=== PATIENT | female | born 1995 | race Caucasian/White ===

== ENCOUNTER → 2020-12-27 | Outpatient (CLI) | payer MEDICAID ==
[~2020-12-27] MED LIST: ACYC200C31 PO; CHOL400D7 PO; IBUP-2030 PO; PREN1COM12 PO; PREN1TAB23 PO
== END | disposition home or self-care (01) ==
LOC: LAB 16:31
DX: Z20.822 Contact with and (suspected) exposure to COVID-19 (principal)
CPT/HCPCS: C9803; U0003; U0005

== ENCOUNTER 2020-12-29 05:17 | Inpatient (IN) | payer MEDICAID ==
[~2020-12-29] VITALS: Ht 162.6 cm; Wt 81.6 kg
[2020-12-29] MEDS ORDERED: PREN1COM12 PO (05:40)
[2020-12-29] MEDS ORDERED: CARBOPROST TROMETHAMINE 250 MCG/ML AMPUL IM PRN (05:45)
[2020-12-29] MEDS ORDERED: METHYLERGONOVINE MALEATE 0.2 MG/ML IM PRN (05:45)
[2020-12-29] MEDS ORDERED: NALOXONE HCL 0.4 MG/ML 1ML VIAL IM PRN (05:45)
[2020-12-29] MEDS: LACTATED RINGERS 1,000 ML IV SCH ×3 (06:20→07:33)
[2020-12-29] MEDS ORDERED: CITRIC ACID/SODIUM CITRATE SOLN 30ML UDC PO ONE (06:45)
[2020-12-29 06:58] LABS: CLARITY URINE CLEAR (CLEAR); COLOR URINE YELLOW (YELLOW); KETONES URINE NEGATIVE (NEGATIVE); LEUKOCYTE ESTERASE URINE TRACE (NEGATIVE); NITRITE URINE NEGATIVE (NEGATIVE); OCCULT BLOOD URINE NEGATIVE (NEGATIVE); PH URINE 7.5 (4.5-8.0); PROTEIN URINE NEGATIVE (NEGATIVE); SPECIFIC GRAVITY URINE 1.012 (1.005-1.030); UROBILINOGEN URINE 0.2 E.U./dL (0.2-1.0)
[2020-12-29 07:12] LABS: BASOPHILS % 0.3 % (0.0-2.0); EOSINOPHILS % 1.9 % (0.0-5.0); HEMATOCRIT. 38.9 % (36.0-48.0); HEMOGLOBIN. 13.5 g/dL (12.0-16.0); LYMPHOCYTES % 25.6 % (20.0-50.0); MEAN CORPUSCULAR HEMOGLOBIN 31.2 pg (28.0-32.0); MEAN CORPUSCULAR VOLUME 90.2 fL (81.0-99.0); MONOCYTES % 7.9 % (2.0-8.0); NEUTROPHILS % 64.3 % (40.0-76.0); PLATELET 182 x1000/uL (130-400); RED BLOOD CELL COUNT 4.31 mill/uL (4.2-5.4); RED CELL DISTRIBUTION WIDTH 13.8 % (11.6-14.6)
[2020-12-29] MEDS ORDERED: PREN1TAB23 PO (07:16)
[2020-12-29] MEDS ORDERED: ACYC200C31 PO (07:16)
[2020-12-29] MEDS ORDERED: CHOL400D7 PO (07:16)
[2020-12-29 07:38] LABS: INR 0.9; PARTIAL THROMBOPLASTIN TIME 29.1 sec (23.4-31.0); PROTHROMBIN TIME 9.8 sec (9.6-11.0)
[2020-12-29 07:54] LABS: HEPATITIS B SURFACE ANTIGEN NEGATIVE
[2020-12-29 08:05] LABS: *BARBITURATES SCREEN URINE NEGATIVE (NEGATIVE); *BENZODIAZEPINES SCREEN URINE NEGATIVE (NEGATIVE); *COCAINE SCREEN URINE NEGATIVE (NEGATIVE); METHADONE URINE SCREEN NEGATIVE (NEGATIVE); OPIATES URINE SCREEN NEGATIVE (NEGATIVE); PHENCYCLIDINE URINE SCREEN NEGATIVE (NEGATIVE)
[2020-12-29 08:06] LABS: *AMPHETAMINES SCREEN URINE NEGATIVE (NEGATIVE); CANNABINOID URINE SCREEN NEGATIVE (NEGATIVE)
[2020-12-29] MEDS ORDERED: NALOXONE HCL 0.4 MG/ML 1ML VIAL IV PRN (11:45)
[2020-12-29] MEDS ORDERED: MORPHINE SULFATE 10 MG/ML CPJ IV PRN (11:45)
[2020-12-29] MEDS ORDERED: FENTANYL CITRATE/PF 50MCG/ML 2ML VIAL IV PRN (11:45)
[2020-12-29] MEDS ORDERED: ONDANSETRON HCL 4MG/2ML INJ IV PRN ×2 (11:45→13:15)
[2020-12-29] MEDS ORDERED: DIPHENHYDRAMINE 50MG/ML VIAL IV PRN ×2 (11:45)
[2020-12-29] MEDS ORDERED: MORPHINE SULFATE/PF 1MG/ML 10ML AMP ONE (11:56)
[2020-12-29] MEDS ORDERED: SUCCINYLCHOLINE CHLORIDE 200MG/10ML IV ONE (11:56)
[2020-12-29] MEDS ORDERED: OXYTOCIN 10 UNITS/ML 1ML ONE (11:56)
[2020-12-29] MEDS ORDERED: CEFAZOLIN SODIUM 1000MG/VIAL ONE (11:56)
[2020-12-29] MEDS ORDERED: GLYCOPYRROLATE 0.2 MG/ML 2ML VIAL ONE (12:17)
[2020-12-29] MEDS: DEXT 5%/LR + PITOCIN 20UNITS/L 1,000 ML IV SCH (13:10)
[2020-12-29] MEDS ORDERED: HEMORRHOIDAL SUPP PR PRN (13:15)
[2020-12-29] MEDS ORDERED: LANOLIN OINT 7GM TUBE TOP PRN (13:15)
[2020-12-29] MEDS ORDERED: HYDROCODONE/ACETAMINOPHEN 5/325MG TABLET PO PRN (13:15)
[2020-12-29] MEDS ORDERED: DEXT 5%/LR + PITOCIN 20UNITS/L 1,000 ML IV SCH (13:15)
[2020-12-29] MEDS ORDERED: BISACODYL 10MG SUPP PR PRN (13:15)
[2020-12-29] MEDS ORDERED: IBUPROFEN 400MG TABLET PO PRN (13:15)
[2020-12-29 15:00] VITALS: BP 112/59
[2020-12-29 15:15] VITALS: BP 108/62
[2020-12-29 15:45] VITALS: BP 111/62
[2020-12-29] MEDS: MAGNESIUM/ALUMINUM HYDROXIDE/SIMETHICONE 30ML UDC PO SCH (17:30)
[2020-12-29] MEDS: KETOROLAC 30MG/ML VIAL IV SCH ×2 (17:32→23:49)
[2020-12-29] MEDS: SIMETHICONE 80MG TABLET CHEW PO SCH (18:00)
[2020-12-29 19:40] VITALS: BP 96/56
[2020-12-29 23:55] VITALS: BP 98/53
[2020-12-30 03:15] VITALS: BP 102/56
[2020-12-30] MEDS: DEXT 5%/LR + PITOCIN 20UNITS/L 1,000 ML IV SCH (03:31)
[2020-12-30] MEDS ORDERED: KETOROLAC 30MG/ML VIAL IV SCH (05:45)
[2020-12-30 07:20] LABS: BASOPHILS % 0.1 % (0.0-2.0); EOSINOPHILS % 0.3 % (0.0-5.0); HEMATOCRIT. 34.9 % (36.0-48.0); HEMOGLOBIN. 12.1 g/dL (12.0-16.0); LYMPHOCYTES % 10.6 % (20.0-50.0); MEAN CORPUSCULAR HEMOGLOBIN 31.3 pg (28.0-32.0); MEAN CORPUSCULAR VOLUME 90.1 fL (81.0-99.0); MEAN PLATELET VOLUME 8.2 fl (7.4-10.4); MONOCYTES % 5.2 % (2.0-8.0); NEUTROPHILS % 83.8 % (40.0-76.0); PLATELET 165 x1000/uL (130-400); RED BLOOD CELL COUNT 3.88 mill/uL (4.2-5.4); RED CELL DISTRIBUTION WIDTH 13.8 % (11.6-14.6)
[2020-12-30 08:00] VITALS: BP 99/54
[2020-12-30] MEDS: SIMETHICONE 80MG TABLET CHEW PO SCH ×4 (09:06→21:42)
[2020-12-30] MEDS: PRENATAL VIT/FE FUMARATE/FA TABLET PO SCH (09:06)
[2020-12-30] MEDS: FERROUS SULFATE 325MG TABLET PO SCH ×3 (09:06→16:49)
[2020-12-30] MEDS: MAGNESIUM/ALUMINUM HYDROXIDE/SIMETHICONE 30ML UDC PO SCH ×3 (12:30→21:42)
[2020-12-30 16:00] VITALS: BP 99/69
[2020-12-30] MEDS: IBUPROFEN 800MG TABLET PO PRN (16:57)
[2020-12-30 20:00] VITALS: BP 112/69
[2020-12-30] MEDS: DOCUSATE SODIUM 100MG CAPSULE PO SCH (21:42)
[2020-12-31] MEDS: IBUPROFEN 800MG TABLET PO PRN ×3 (00:12→17:28)
[2020-12-31 00:15] VITALS: BP 112/69
[2020-12-31 04:15] VITALS: BP 114/69
[2020-12-31 07:30] VITALS: BP 114/62
[2020-12-31] MEDS: MAGNESIUM/ALUMINUM HYDROXIDE/SIMETHICONE 30ML UDC PO SCH ×4 (08:46→20:40)
[2020-12-31] MEDS: SIMETHICONE 80MG TABLET CHEW PO SCH ×4 (08:46→20:41)
[2020-12-31] MEDS: FERROUS SULFATE 325MG TABLET PO SCH ×3 (08:47→17:28)
[2020-12-31] MEDS: PRENATAL VIT/FE FUMARATE/FA TABLET PO SCH (08:47)
[2020-12-31 16:05] VITALS: BP 98/61
[2020-12-31 19:30] VITALS: BP 117/63
[2020-12-31] MEDS: DOCUSATE SODIUM 100MG CAPSULE PO SCH (20:40)
[2021-01-01 04:00] VITALS: BP 111/56
[2021-01-01] MEDS: IBUPROFEN 800MG TABLET PO PRN (04:39)
[2021-01-01 07:30] VITALS: BP 102/58
[2021-01-01] MEDS: FERROUS SULFATE 325MG TABLET PO SCH (08:06)
[2021-01-01] MEDS: PRENATAL VIT/FE FUMARATE/FA TABLET PO SCH (08:06)
[2021-01-01] MEDS: MAGNESIUM/ALUMINUM HYDROXIDE/SIMETHICONE 30ML UDC PO SCH (08:06)
[2021-01-01] MEDS: SIMETHICONE 80MG TABLET CHEW PO SCH (08:06)
[2021-01-01] MEDS ORDERED: IBUP-2030 PO (09:57)
== END 2021-01-01 10:35 | disposition home or self-care (01) | DRG 540 ==
LOC: OBSVTOIN 05:17 → 8 EST LDRP 05:17 → 8EST 14:59
PROVIDERS: ADMIT Obstetrics & Gynecology; ATTEND Obstetrics & Gynecology
PROC: 10D00Z1 Extraction of Products of Conception, Low, Open Approach (ICD-10-PCS; principal; 2020-12-29)
DX: O34.211 Maternal care for low transverse scar from previous cesarean delivery (principal); D64.9 Anemia, unspecified; O90.81 Anemia of the puerperium; Z37.0 Single live birth; Z3A.39 39 weeks gestation of pregnancy
CPT/HCPCS: 36415; 80305; 81003; 85025; 86592; 86703; 86762; 86850; 86900; 87340; 88307; 99281; J0330; J0690; J1200; J1885; J2274; J2405; J2590; J3490; J7120; A4315